=== PATIENT | male | born 1960 | race Two or more races ===

== ENCOUNTER 2021-08-28 21:46 | Emergency (ER) | payer SELFPAY ==
[~2021-08-28] VITALS: Ht 167.6 cm; Wt 72.6 kg
--- NOTE | 2021-08-28 22:00 | NUR ---
PATIENT BIBRA 89 FROM HOME C/O HYPERTENSIVE IN THE 180'S, PATIENT TOOK AN ERITREAN BLOOD PRESSURE MEDICATION. PATIENT IS A/O, RR EVEN AND UNLABORED, NO SOB NOTED. PATIENT CONNECTED TO [employer] SUPER[employer]OR AND POX.
--- NOTE | 2021-08-28 22:15 | NUR ---
LUIZ MATAMOROS/FAMILY AT BEDSIDE, FOR TRANSLATION
--- NOTE | 2021-08-28 22:36 | NUR ---
PATIENT TAKEN TO CT
[2021-08-28 22:47] LABS: BASOPHILS % (AUTO) 0.5 % (0.0-2.0); EOSINOPHILS % (AUTO) 2.7 % (0.0-6.0); HEMATOCRIT 43 % (39-51); LYMPHOCYTES # (AUTO) 2.4 K/uL (0.8-4.8); LYMPHOCYTES % (AUTO) 38.2 % (20.0-44.0); MEAN CORPUSCULAR HGB CONC 35 g/dl (31.0-36.0); MEAN CORPUSCULAR VOLUME 86 fL (80-96); MONOCYTES # (AUTO) 0.4 K/uL (0.1-1.30); MONOCYTES % (AUTO) 6.7 % (2.0-12.0); NEUTROPHILS # (AUTO) 3.3 K/uL (1.8-8.9); NEUTROPHILS % (AUTO) 51.9 % (43.0-81.0); PLATELET COUNT (AUTO) 207 K/uL (150-450); RED BLOOD CELL COUNT(AUTO) 4.97 MIL/uL (4.5-6.0); WHITE BLOOD COUNT (AUTO) 6.4 K/uL (4.3-11.0)
[2021-08-28 22:58] LABS: CALCIUM, SERUM 8.6 mg/dL (8.5-10.1); CARBON DIOXIDE 28 mmol/L (21-32); CHLORIDE 109 mmol/L (98-107); CREATININE 1.1 mg/dL (0.6-1.3); GLUCOSE 107 mg/dL (74-106); POTASSIUM 3.8 mmol/L (3.5-5.1); SODIUM SERUM 146 mmol/L (136-145); UREA NITROGEN, BLOOD 14 mg/dL (7-18)
[2021-08-28] MEDS ORDERED: ACETAMINOPHEN 325 MG TABLET ONE (23:29)
[2021-08-28] MEDS ORDERED: MECLIZINE HCL 25 MG TABLET ONE (23:29)
[2021-08-28] MEDS ORDERED: ACETAMINOPHEN 650 MG/20.3 ML UDC PO ONE (23:30)
[2021-08-28] MEDS ORDERED: MECLIZINE HCL 12.5 MG TABLET PO ONE (23:30)
[2021-08-28] MEDS ORDERED: CAPT25TA3 PO (23:31)
[2021-08-28 23:50] VITALS: BP 115/72
--- NOTE | 2021-08-28 23:50 | NUR ---
Patient discharged to home in stable condition. Written and verbal after care instructions given. Patient verbalizes understanding of instruction.
--- NOTE | 2021-08-28 23:50 | NUR ---
IV removed. Catheter intact and site benign. Pressure and 4x4 applied to site. No bleeding noted.
== END 2021-08-29 | disposition home or self-care (01) ==
LOC: ER 21:48
DX: I10 Essential (primary) hypertension (principal)
CPT/HCPCS: 36415; 70450; 80048; 84484; 85025; 93005; 99285; J8597